=== PATIENT | female | born 1985 | race Caucasian/White ===

== ENCOUNTER → 2016-10-06 | Outpatient (CLI) | payer OTHER ==
[~2016-10-06] MED LIST: NITR-65 PO
--- OUTSIDE RECORDS SUMMARY | 2016-10-06 13:38 | XMS REPORT | Continuity of Care Document ---
Author Author [facility] Address Unknown Phone Unavailable Allergies Active Description Code Type Severity Reaction Onset Reported/Identified Relationship to Patient Clinical Status Yes Sulfa (Sulfonamide Antibiotics) [id number] Drug Allergy Mild N/A 06/17/2013 Yes Sulfa (Sulfonamide Antibiotics) Drug Allergy N/A N/A 08/03/2013 Medications Problems Date Dx Coded Attending Type Code Diagnosis Diagnosed By 06/17/2013 MAGEN HUYNH MD R Ot 599.0 URIN TRACT INFECTION NOS 06/17/2013 MAGEN HUYNH MD Ot 599.70 HEMATURIA, UNSPECIFIED 08/03/2013 [facility] AN ANXIETY UNSPEC 08/03/2013 [facility]4 MO DYSTHYMIC DISORDER 08/03/2013 [facility] L[facility] R 599.0 URINARY TRACT INFECTION 08/03/2013 CLEIA DICKSON MD N 300.00 AN ANXIETY UNSPEC 08/03/2013 CELIA DICKSON MD N 300.4 MO DYSTHYMIC DISORDER 08/03/2013 CELIA DICKSON MD N 599.0 URINARY TRACT INFECTION 08/03/2013 ANUP HUBER, TRUDY A 300.00 AN ANXIETY UNSPEC 08/03/2013 EMELINA HEBERT APRNIDI A 300.4 MO DYSTHYMIC DISORDER 08/03/2013 ANUP HUBER, TRUDY A 599.0 URINARY TRACT INFECTION 08/03/2013 [facility] R 300.00 AN ANXIETY UNSPEC 08/03/2013 [facility] MO DYSTHYMIC DISORDER 08/03/2013 [facility] R 599.0 URINARY TRACT INFECTION 08/30/2013 CELIA DICKSON MD N V04.81 FLU SHOT 08/30/2013 ANUP HUBER TRUDY A V04.81 FLU SHOT 08/30/2013 [facility] R V04.81 FLU SHOT 09/20/2013 EMELINA HEBERT APRNIDI A 626.4 IRREGULAR MENSTRUAL CYCLE 09/20/2013 TRUDY HEBERT APRN V25.01 CONTRACEPTION - ORAL CONTRACEPTION 09/20/2013 [facility] Elia 626.4 IRREGULAR MENSTRUAL CYCLE 09/20/2013 [facility] V25.01 CONTRACEPTION - ORAL CONTRACEPTION 10/08/2015 TRENTONJANNA PIECE DYE WORKER Ot M54.2 10/17/2015 TRENTON JANNA Santana PIECE DYE WORKER Ot M54.2 10/22/2015 EMILYELAESIM JANNA Santana PIECE DYE WORKER Ot M54.2 01/07/2016 SHAWN MARROQUIN DO S Ot R10.84 GENERALIZED ABDOMINAL PAIN 01/09/2016 ROBBY MARROQUIN DOLINE S Ot R10.84 GENERALIZED ABDOMINAL PAIN 01/10/2016 SHAWN MARROQUIN DO S Ot R10.84 GENERALIZED ABDOMINAL PAIN 01/24/2016 ROBBY MARROQUIN DOLINE S Ot R10.84 GENERALIZED ABDOMINAL PAIN 03/13/2016 TRENTONJANNA PIECE DYE WORKER Ot M54.2 CERVICALGIA 03/13/2016 ROBBY MARROQUIN DOLINE S Ot R10.84 GENERALIZED ABDOMINAL PAIN 04/03/2016 TRENTON JANNA Santana PIECE DYE WORKER Ot M54.2 CERVICALGIA 04/03/2016 JENNIFER MARROQUIN DOQUELINE S Ot R10.84 GENERALIZED ABDOMINAL PAIN Procedures Code [place] [address] UA W/ CULTURE IF INDICATED 08/03/2013 85727 PSYCH DIAGNOSTIC EVALUATION 08/04/2013 02135 CULTURE URINE 72617 ROUTINE VENIPUNCTURE 08/30/2013 77749 TEST, URINE (IN-HOUSE) 08/30/2013 07633 TSH 08/30/2013 87586 CBC 08/30/2013 08861 PSYTX PT&/FAMILY 45 MINUTES 10/12/2013 Results Encounters ACCT No. Visit Date/Time Discharge Status Pt. Type Provider Facility Loc./Unit Complaint [id number] 10/12/2013 14:58:00 10/12/2013 23: 59:59 [id number] 09/20/2013 11:11:00 09/20/2013 23: 59:59 CLS Outpatient TRUDY HEBERT APRN [id number] 08/30/2013 08:49:00 08/30/2013 23: 59:59 CLS Outpatient CELIA DICKSON MD [id number] 08/03/2013 14:58:00 08/03/2013 23: 59:[address] [facility]
--- NOTE | 2016-10-06 16:16 | Diagnostic Imaging Report ---
PROCEDURE: US Thyroid. TECHNIQUE: Multiple real-time grayscale images were obtained of the thyroid in various projections. INDICATION: Thyromegaly. FINDINGS: The right lobe is enlarged at 5.0 x 1.7 x 1.4 cm. The left lobe is enlarged at 5.4 x 1.5 x 1.5 cm. There are multiple tiny hypoechoic circumscribed nonaggressive-appearing nodules throughout both lobes. The largest in the right lobe has a long axis of 5 mm. The largest in the left lobe has a long axis of 8 mm. IMPRESSION: Thyromegaly with multiple tiny subcentimeter benign-appearing well-defined hypoechoic nodules suggest multiple adenomas. Followup in one year's time is suggested assuming the absence of any adverse interval clinical change. Dictated by: Dictated on workstation # [id number]
== END ==
LOC: RAD 13:02
PROVIDERS: ATTEND Internal Medicine
DX: E01.0 Iodine-deficiency related diffuse (endemic) goiter (principal)
CPT/HCPCS: 76536

== ENCOUNTER → 2017-01-28 | Outpatient (CLI) | payer OTHER ==
--- NOTE | 2017-01-28 17:38 | Diagnostic Imaging Report ---
PROCEDURE: US Thyroid. TECHNIQUE: Multiple real-time grayscale images were obtained of the thyroid in various projections. INDICATION: Follow-up nodule. COMPARISON: 10/06/2016. FINDINGS: The right thyroid lobe is 4.8 x 1.7 x 1.1 cm. The left lobe is 5.2 x 1.3 x 1.2 cm. In the mid right thyroid lobe, there is a 0.4 x 0.5 x 0.3 cm hypoechoic nodule likely cyst. In the left lobe, there is a hypoechoic nodule measuring 0.8 x 0.6 x 0.7 cm similar to the previous study of 10/06/2016. This lesion is slightly heterogeneous with no definitive calcification. No internal vascularity with color Doppler is identified. IMPRESSION: Thyroid nodule up to 8 mm in size in the left lobe unchanged from the September 2016 exam. Follow-up ultrasound in 9-12 months is recommended to ensure further stability. Dictated by: Dictated on workstation # [id number]
--- NOTE | 2017-01-29 09:22 | Diagnostic Imaging Report ---
EXAM: Renal ultrasound. INDICATION: Right flank pain for 2 months. FINDINGS: The right kidney is 10.7 and the left kidney is 10.9 cm in length. There is no hydronephrosis or focal lesion. The bladder is not well-distended with no obvious abnormality. IMPRESSION: No definite abnormality. Dictated by: Dictated on workstation # [id number]
== END ==
LOC: RAD 11:47
PROVIDERS: ATTEND Nurse Practitioner Family
DX: E04.1 Nontoxic single thyroid nodule (principal); R10.9 Unspecified abdominal pain
CPT/HCPCS: 76536; 76770

== ENCOUNTER → 2017-02-18 | Outpatient (CLI) | payer OTHER ==
--- NOTE | 2017-02-18 15:30 | Diagnostic Imaging Report ---
PROCEDURE: US Gallbladder. TECHNIQUE: Multiple real-time grayscale images were obtained over the right upper quadrant in various projections. INDICATION: Nausea. Abdominal pain. FINDINGS: The area of the pancreas appears unremarkable. The liver is fairly homogeneous with no focal lesion. There is hepatopetal flow in the portal vein. The gallbladder demonstrates no stones, wall thickening or pericholecystic fluid. The CBD is 3 mm in caliber. The right kidney is 10.5 cm in length with no hydronephrosis or focal lesion. Sonographic Gilbert's sign is reportedly negative. No fluid collection in the upper right abdomen is seen. IMPRESSION: Unremarkable exam. Dictated by: Dictated on workstation # [id number]
== END ==
LOC: RAD 15:01
PROVIDERS: ATTEND Nurse Practitioner Family
DX: R11.0 Nausea (principal); R10.84 Generalized abdominal pain
CPT/HCPCS: 76705

== ENCOUNTER → 2017-03-15 | Outpatient (CLI) | payer OTHER ==
[~2017-03-15] MED LIST changes: +CYCL10TA9 PO; +ESCI5TAB PO; +HYDR-3812 PO; +THYR32.57 PO
--- NOTE | 2017-03-15 16:24 | Diagnostic Imaging Report ---
PROCEDURE: CT abdomen and pelvis without contrast. TECHNIQUE: Multiple contiguous axial images were obtained through the abdomen and pelvis without the use of intravenous contrast. INDICATION: Hematuria. COMPARISON: 06/17/2013 FINDINGS: The lung bases appear unremarkable. The liver, the gallbladder, the spleen, the pancreas, and adrenal glands appear unremarkable. There is no hydronephrosis. No urinary tract stone is seen. There is no bowel obstruction. No significant free fluid or fluid collection in the abdomen or pelvis is seen. The appendix is normal. Abdominal aorta is normal in caliber. No paraaortic significantly enlarged lymph nodes are seen. The uterus and adnexa appear grossly unremarkable. IMPRESSION: No urinary tract stones. The osseous structures appear grossly unremarkable. Dictated by: Dictated on workstation # [id number]
== END ==
LOC: RAD 15:50
PROVIDERS: ATTEND Urology
DX: R31.9 Hematuria, unspecified (principal)
CPT/HCPCS: 74176

== ENCOUNTER 2017-04-02 16:29 | Emergency (ER) | payer OTHER ==
[~2017-04-02] VITALS: Ht 167.6 cm; Wt 70.3 kg
[~2017-04-02 16:29] MED LIST changes: -CYCL10TA9 PO; -ESCI5TAB PO; -HYDR-3812 PO; -THYR32.57 PO
--- OUTSIDE RECORDS SUMMARY | 2017-04-02 16:34 | XMS REPORT | Continuity of Care Document ---
Author Author [facility] Address Unknown Phone Unavailable Allergies Active Description Code Type Severity Reaction Onset Reported/Identified Relationship to Patient Clinical Status Yes Sulfa (Sulfonamide Antibiotics) [id number] Drug Allergy Mild N/A 06/17/2013 Yes Sulfa (Sulfonamide Antibiotics) Drug Allergy N/A N/A 08/03/2013 Medications Problems Date Dx Coded Attending Type Code Diagnosis Diagnosed By 06/17/2013 MAGEN HUYNH MD R Ot 599.0 URIN TRACT INFECTION NOS 06/17/2013 MAGEN HUYNH MD Ot 599.70 HEMATURIA, UNSPECIFIED 08/03/[facility]ET[facility] UNSPEC 08/03/2013 [facility] MO DYSTHYMIC DISORDER 08/03/2013 [facility] LIS R 599.0 URINARY TRACT INFECTION 08/03/2013 CELIA DICKSON MD N 300.00 AN ANXIETY UNSPEC 08/03/2013 CELIA DICKSON MD N 300.4 MO DYSTHYMIC DISORDER 08/03/2013 CELIA DICKSNO MD N 599.0 URINARY TRACT INFECTION 08/03/2013 ANUP HUBER, TRUDY A 300.00 AN ANXIETY UNSPEC 08/03/2013 ANUP HUBER TRUDY A 300.4 MO DYSTHYMIC DISORDER 08/03/2013 ANUP HUBER, TRUDY A 599.0 URINARY TRACT INFECTION 08/03/2013 [facility] LSI R 300.00 AN ANXIETY UNSPEC 08/03/2013 [facility] MO DYSTHYMIC DISORDER 08/03/2013 [facility] LIS R 599.0 URINARY TRACT INFECTION 08/30/2013 CELIA DICKSON MD N V04.81 FLU SHOT 08/30/2013 ANUP HUBER TRUDY A V04.81 FLU SHOT 08/30/2013 [facility] LIS R V04.81 FLU SHOT 09/20/2013 TRUDY HEBERT APRN A 626.4 IRREGULAR MENSTRUAL CYCLE 09/20/2013 TRUDY HEBERT APRN V25.01 CONTRACEPTION - ORAL CONTRACEPTION 09/20/2013 [facility], LIS R 626.4 IRREGULAR MENSTRUAL CYCLE 09/20/2013 [facility], LIS Rodrigez V25.01 CONTRACEPTION - ORAL CONTRACEPTION 10/08/2015 JANNA CHOWDHURY FLAT BED OPERATOR Ot M54.2 10/17/2015 EMILYELAEREJANNA FLAT BED OPERATOR Ot M54.2 10/22/2015 EMILYELAEREJANNA FLAT BED OPERATOR Ot M54.2 01/07/2016 FANNYNDER DO, SHAWN S Ot R10.84 GENERALIZED ABDOMINAL PAIN 01/09/2016 ORENDER DO, SHAWN S Ot R10.84 GENERALIZED ABDOMINAL PAIN 01/10/2016 ORENDER DO, SHAWN S Ot R10.84 GENERALIZED ABDOMINAL PAIN 01/24/2016 ORENDER DO, SHAWN S Ot R10.84 GENERALIZED ABDOMINAL PAIN 03/13/2016 JANNA CHOWDHURY FLAT BED OPERATOR Ot M54.2 CERVICALGIA 03/13/2016 OREND DO, SHAWN S Ot R10.84 GENERALIZED ABDOMINAL PAIN 04/03/2016 EMILYJANNA ASCENCIO FLAT BED OPERATOR Ot M54.2 CERVICALGIA 04/03/2016 FANNYND DO, SHAWN S Ot R10.84 GENERALIZED ABDOMINAL PAIN 10/07/2016 ENRRIQUE MALDONADO DO Ot 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 ( ENDEM 11/10/2016 ENRRIQUE MALDONADO DO Ot 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 ( ENDEM 02/10/2017 FREDERICK MALDONADO FLAT BED OPERATOR Ot E04.1 NONTOXIC SINGLE THYROID NODULE 02/10/2017 FREDERICK MALDONADO FLAT BED OPERATOR Ot R10.9 UNSPECIFIED ABDOMINAL PAIN 03/16/2017 SE TORRES, JESSIE Solis Ot R31.9 HEMATURIA, UNSPECIFIED 03/23/2017 FREDERICK MALDONADO FLAT BED OPERATOR Ot R10.84 GENERALIZED ABDOMINAL PAIN 03/23/2017 FREDERICK MALDONADO FLAT BED OPERATOR Ot R11.0 NAUSEA 03/29/2017 JESSIE SAEZ MD Ot R31.9 HEMATURIA, UNSPECIFIED Procedures Code Description [place] [address] UA W/ CULTURE IF INDICATED 08/03/2013 02620 PSYCH DIAGNOSTIC EVALUATION 08/04/2013 06402 CULTURE URINE 90170 ROUTINE VENIPUNCTURE 08/30/2013 80514 TEST, URINE (IN-HOUSE) 08/30/2013 61792 TSH 08/30/2013 78057 CBC 08/30/2013 14700 PSYTX PT&/FAMILY 45 MINUTES 10/12/2013 Results Encounters ACCT No. Visit Date/Time Discharge Status Pt. Type Provider Facility Loc./Unit Complaint [id number] 10/12/2013 14:58:00 10/12/2013 23: 59:59 CLS Outpatient LIS RUVALCABA [id number] 09/20/2013 11:11:00 09/20/2013 23: 59:59 CLS Outpatient TRUDY HEBERT APRN [id number] 08/30/2013 08:49:00 08/30/2013 23: 59:59 CLS Outpatient CELIA DICKSON MD [id number] 08/03/2013 14:58:00 08/03/2013 23: 59:59 CLS Outpatient LIS RUVALCABA [id number] 03/15/2017 15:50:00 2016 23:59:59 CLS Outpatient JESSIE SAEZ MD [facility] RAD HEMATURIA [id number] 02/18/2017 15:01:00 2016 23:59:59 CLS Outpatient FREDERICK MALDONADO FLAT BED OPERATOR [facility] RAD NAUSEA [id number] 01/28/2017 11:47:00 2016 23:59:59 CLS Outpatient FREDERICK MALDONADO FLAT BED OPERATOR [facility] RAD ABD PAIN,FLANK PAIN, ENLARGED THYROID [id number] 10/06/2016 13:02:00 2016 23:59:59 CLS Outpatient ENRRIQUE MALDONADO DO [facility] RAD THYROMEGALY [id number] 01/06/2016 13:48:00 2015 23:59:59 CLS Outpatient SHAWN MARROQUIN DO [facility] RAD FLANK PAIN [id number] 09/24/2015 09:15:00 2015 23:59:59 CLS Outpatient JANNA CHOWDHURY [facility] RAD NECK PAIN [id number] 06/17/2013 06:30:00 2012 08:18:00 DIS Emergency AMINA TORRES, MAGEN Rodrigez [facility] ER BLOOD IN URINE
[2017-04-02] MEDS ORDERED: THYR32.57 PO (16:48)
[2017-04-02] MEDS ORDERED: HYDR-3812 PO (16:48)
[2017-04-02] MEDS ORDERED: ESCI5TAB PO (16:48)
[2017-04-02] MEDS ORDERED: ORPHENADRINE 60 MG/2 ML (NORFLEX) AMP IV STA (17:22)
[2017-04-02] MEDS ORDERED: KETOROLAC 30 MG/ML VIAL IVP STA (17:22)
[2017-04-02] MEDS ORDERED: LACTATED RINGERS 1,000 ML IV ONE (17:22)
[2017-04-02] MEDS ORDERED: ONDANSETRON 4 MG/2 ML (SDV) Z0FRAN IVP ONE (17:30)
--- NOTE | 2017-04-02 17:40 | ED Headache ---
General Chief Complaint: Head/Cervical Problems Stated Complaint: MIGRAINE Nursing Triage Note: to ER with mother with reports of headache since last night. Patient was recently (3 weeks ago) diagnosed with Frank mountain spotted fever, and treated with doxycycline. Patient reports that her PCP advised for her to stop the doxycycline due to her headaches, and has been off of that for 1 week. Patient reports that at onset of headache last night, she took 2 hydrocodone, which subsequently made her nauseated and "felt drunk." Patient reports not attempting other medications since. Denies any other complaints. Nursing Sepsis Screen: No Definite Risk Source: patient, family (MOM) (PATRICIA LEVY DO) History of Present Illness Time seen by provider: 16:50 Initial Comments C/O RIGHT SIDED HEADACHE SINCE 429 YESTERDAY MORNING + NAUSEA, NO VOMITING NO DIZZINESS NO VISION CHANGES NO PARESTHESIAS OR MOTOR DEFICITS NO FEVER HEADACHE IS WORSENED BY STANDING AND BEING IN HEAT AND LIGHT, AND IMPROVED BY LAYING DOWN AND RESTING STATES HEADACHE COMES IN WAVES--COMES AND GOES STATES SHE HAS HAD 2 MONOCULAR MIGRAINES THAT SHE COMPLETELY LOST VISION -ONE IN AUGUST AND ONE IN JANUARY OF THIS YEAR THIS HEADACHE IS SIMILAR, BUT WITHOUT VISION CHANGES PT HAS NOT TAKEN ANYTHING FOR PAIN TODAY TOOK 2 HYDROCODONE YESTERDAY EVENING WITHOUT RELIEF--CAUSED NAUSEA AND MADE HER FEEL DRUNK PT STATES 3 WEEKS AGO, SHE DEVELOPED A RASH--DERMOGRAPHISM--SKIN WOULD WELT UP IF SHE SCRATCHED HER SKIN--SEEN BY KATHIA FRIEDMAN AND WAS PLACED ON PREDNISONE AND RASH WENT AWAY THEN SHE BEGAN TO HAVE NAUSEA, BODY ACHES, HEADACHES, FATIGUE, AND WAS SEEN AGAIN BY KATHIA FRIEDMAN AND LAB WAS DONE AND WAS DX WITH FRANK MOUNTAIN SPOTTED FEVER. WAS PLACED ON PLAQUENIL AND DOXYCYCLINE. HEADACHES CONTINUED, SO AFTER A WEEK OF MEDICATIONS, THEY WERE ALL STOPPED, BECAUSE COMMUNICATION PROFESSOR THOUGHT THAT HEADACHES WERE FROM MEDICATIONS. NO NEW MEDICATION TO TREAT RMSF WAS PRESCRIBED PT HAS BEEN HAVING NECK TENSION X 2 WEEKS AND HAS BEEN SEEN BY CHIROPRACTOR AND MASSAGE THERAPIST WITHOUT SIGNIFICANT RELIEF PT HAS NOT HAD ANY TICK BITES PT HAS NOT HAD FEVER AT ANY TIME PT ALSO HAS HISTORY OF FREQUENT UTI'S AND BEGAN HAVING RIGHT FLANK PAIN WAS SEEN BY DR. MATTHEWS 2 WEEKS AGO AND HAD UA AND CYSTOSCOPY AND WAS TOLD THAT EVERYTHING WAS CLEAR AT THAT TIME 2 DAYS LATER, WAS SEEN BY COMMUNICATION PROFESSOR AND WAS TOLD SHE HAD UTI, AND WAS PRESCRIBED CIPRO FOR 3-5 DAYS, WHICH SHE FINISHED OVER A WEEK AGO--STILL HAVING RIGHT FLANK PAIN PCP: DR. MALDONADO/ COMMUNICATION PROFESSOR NIC FRIEDMAN (PATRICIA LEVY DO) Allergies and Home Medications Allergies Coded Allergies: Sulfa (Sulfonamide Antibiotics) (Verified Allergy, Mild, 06/17/13) Home Medications Cyclobenzaprine HCl 10 Mg Tablet, 10 MG PO HS, #10 Prescribed by: GINGER MCGREGOR on 04/02/170 Escitalopram Oxalate 5 Mg Tablet, 5 MG PO TID, (Reported) Hydrocodone/Acetaminophen 1 Each Tablet, 1 EACH PO Q8H PRN for PAIN, (Reported) Nitrofurantoin Monohyd/M-Cryst 100 Mg Capsule, 1 TAB PO BID, #14 Prescribed by: GINGER MCGREGOR on 04/02/171 Thyroid,Pork 32.5 Mg Tablet, 32.5 MG PO DAILY, (Reported) Constitutional: No chills, No diaphoresis, No dizziness, No fever, No malaise, No weakness Eyes: No Symptoms Reported, Denies Blindness, Denies Blurred Vision, Denies Decreased Acuity Ears, Nose, Mouth, Throat: no symptoms reported Respiratory: no symptoms reported Cardiovascular: no symptoms reported Gastrointestinal: see HPI, No abdominal pain, nausea, No vomiting Genitourinary: see HPI, other (RIGHT FLANK PAIN ) LMP: Feb 13, 2017 (NO CONTROL) Musculoskeletal: see HPI (RIGHT FLANK PAIN ), neck pain Skin: no symptoms reported Psychiatric/Neurological: No Symptoms Reported, Headache, Denies Numbness, Denies Paresthesia, Denies Seizure, Denies Tingling, Denies Weakness (PATRICIA LEVY DO) Past Dmaxbat-Acadhp-Hctkbu Hx Patient Social History Alcohol Use: Denies Use Recreational Drug Use: No Smoking Status: Never a Smoker 2nd Hand Smoke Exposure: No Recent Foreign Travel: No Contact w/Someone Who Travel: No Recent Infectious Disease Expo: No Recent Hopitalizations: No (PATRICIA LEVY DO) Immunizations Up To Date Tetanus Booster (TDap): Less than 5yrs PED Vaccines UTD: Yes (PATRICIA LEVY DO) Seasonal Allergies Seasonal Allergies: Yes (PATRICIA LEVY DO) Surgeries HX Surgeries: Yes Surgeries: Adenoidectomy, Tonsillectomy (DELROY,PATRICIA K DO) Respiratory Hx Respiratory Disorders: No (DELROY,PATRICIA K DO) Cardiovascular Hx Cardiac Disorders: No (DELROY,PATRICIA K DO) Neurological Hx Neurological Disorders: Yes Neurological Disorders: Headaches /Migraines (DELROY,PATRICIA K DO) Reproductive System : No Hx Reproductive Disorders: No Sexually Transmitted Disease: No HIV/AIDS: No Female Reproductive Disorders: Denies (DELROY,PATRICIA K DO) Genitourinary Hx Genitourinary Disorders: Yes Genitourinary Disorders: UTI-Chronic (DELROY,PATRICIA K DO) Gastrointestinal Hx Gastrointestinal Disorders: No (DELROY,PATRICIA K DO) Musculoskeletal Hx Musculoskeletal Disorders: No (DELROY,PATRICIA K DO) Endocrine Hx Endocrine Disorders: Yes (THYROID NODULES/CYSTS) Endocrine Disorders: Hypothyroidsim (DELROY,PATRICIA K DO) HEENT HX ENT Disorders: No (DELROY,PATRICIA K DO) Cancer Hx Cancer: No (DELROY,PATRICIA K DO) Psychosocial Hx Psychiatric Problems: Yes Behavioral Health Disorders: Depression (DELROY,PATRICIA K DO) Integumentary HX Skin/Integumentary Disorder: No (DELROY,PATRICIA K DO) Blood Transfusions Hx Blood Disorders: No (DELROY,PATRICIA K DO) Physical Exam Vital Signs Vital Sign - Last 12Hours 04/02/17 16:38 Temp 98.0 Pulse 76 Resp 16 B/P (MAP) 137/85 Pulse Ox 100 O2 Delivery Room Air (GINGER NIXON MD) Vital Signs Capillary Refill : Less Than 3 Seconds (DELROY,PATRICIA K DO) General Appearance: WD/WN, no apparent distress, other (DOES NOT APPEAR ILL) HEENT: PERRL/EOMI, normal ENT inspection, TMs normal, pharynx normal Neck: full range of motion, supple, other (MUSCLE SPASMS AND TENDERNESS TO RIGHT LATERAL PARAVERTEBRAL MUSCLES) Cardiovascular: regular rate, rhythm, no murmur Respiratory: normal breath sounds, no respiratory distress, no accessory muscle use Gastrointestinal: normal bowel sounds, non tender, soft, no organomegaly, no pulsatile mass Back: normal inspection, CVA tenderness (R) Extremities: normal range of motion, non-tender, normal inspection, no pedal edema, no calf tenderness Psychiatric: alert, oriented x 3 Crainal Nerves: normal hearing, normal speech, PERRL Coordination/Gait: normal gait Motor/Sensory: no motor deficit, no sensory deficit, no pronator drift Reflexes: 2+ Bicep (R), 2+ Bicep (L), 2+ Knee (R), 2+ Knee (L) Skin: normal color, warm/dry, No rash (DELROY,PATRICIA K DO) Progress/Results/Core Measures Results/Orders Lab Results Laboratory Tests Test 04/02/17 17:34 04/02/17 17:37 Range/Units White Blood Count 9.5 4.3-11.0 10^3/uL Red Blood Count 4.22 L 4.35-5.85 10^6/uL Hemoglobin 12.7 11.5-16.0 G/DL Hematocrit 36 35-52 % Mean Corpuscular Volume 85 80-99 FL Mean Corpuscular Hemoglobin 30 25-34 PG Mean Corpuscular Hemoglobin Concent 35 32-36 G/DL Red Cell Distribution Width 12.2 10.0-14.5 % Platelet Count 255 130-400 10^3/uL Mean Platelet Volume 8.9 7.4-10.4 FL Neutrophils (%) (Auto) 57 42-75 % Lymphocytes (%) (Auto) 35 12-44 % Monocytes (%) (Auto) 6 0-12 % Eosinophils (%) (Auto) 2 0-10 % Basophils (%) (Auto) 1 0-10 % Neutrophils # (Auto) 5.4 1.8-7.8 X 10^3 Lymphocytes # (Auto) 3.3 1.0-4.0 X 10^3 Monocytes # (Auto) 0.6 0.0-1.0 X 10^3 Eosinophils # (Auto) 0.2 0.0-0.3 10^3/uL Basophils # (Auto) 0.1 0.0-0.1 10^3/uL Erythrocyte Sedimentation Rate 4 0-20 MM/HR Urine Color YELLOW Urine Clarity CLEAR Urine pH 6.5 5-9 Urine Specific [place] 1.010 L 1.016-1.022 Urine Protein 1+ H NEGATIVE Urine Glucose (UA) NEGATIVE NEGATIVE Urine Ketones NEGATIVE NEGATIVE Urine Nitrite NEGATIVE NEGATIVE Urine Bilirubin NEGATIVE NEGATIVE Urine Urobilinogen NORMAL NORMAL MG/DL Urine Leukocyte Esterase 3+ H NEGATIVE Urine RBC (Auto) 1+ H NEGATIVE Urine RBC 2-5 H /HPF Urine WBC 50-100 H /HPF Urine Squamous Epithelial Cells 25-50 H /HPF Urine Crystals NONE /LPF Urine Bacteria FEW H /HPF Urine Casts NONE /LPF Urine Mucus NEGATIVE /LPF Urine Culture Indicated YES Sodium Level 139 135-145 MMOL/L Potassium Level 3.8 3.6-5.0 MMOL/L Chloride Level 103 98-107 MMOL/L Carbon Dioxide Level 25 21-32 MMOL/L Anion Gap 11 5-14 MMOL/L Blood Urea Nitrogen 14 7-18 MG/DL Creatinine 0.71 0.60-1.30 MG/DL Estimat Glomerular Filtration Rate > 60 BUN/Creatinine Ratio 20 Glucose Level 86 70-105 MG/DL Calcium Level 9.5 8.5-10.1 MG/DL Total Bilirubin 0.8 0.1-1.0 MG/DL Aspartate Amino Transf (AST/SGOT) 21 5-34 U/L Alanine Aminotransferase (ALT/SGPT) 21 0-55 U/L Alkaline Phosphatase 52 40-136 U/L C-Reactive Protein High Sensitivity 0.19 0.00-0.50 MG/DL Total Protein 7.5 6.4-8.2 GM/DL Albumin 4.4 3.2-4.5 GM/DL Magnesium Level 2.2 1.8-2.4 MG/DL TSH Mcdowell Testing 1.33 0.35-4.94 UIU/ML (GINGER NIXON MD) My Orders Orders - GINGER NIXON MD Ceftriaxone Injection (Rocephin Injectio (04/02/17 18:15) (GINGER NIXON MD) Medications Given in ED Current Medications Medications Dose Ordered Sig/Jad Route Start Time Stop Time Status Last Admin Dose Admin Ceftriaxone Sodium 1000 mg/ Sodium Chloride 50 ml @ 100 mls/hr ONCE ONCE IV 04/02/17 18:15 04/02/17 18:44 DC 04/02/17 18:25 100 MLS/HR Lactated Ringer's 1,000 ml @ 0 mls/hr Q0M ONCE IV 04/02/17 17:22 04/02/17 17:26 DC 04/02/17 17:35 0 MLS/HR Ondansetron HCl 4 mg ONCE ONCE IVP 04/02/17 17:30 04/02/17 17:31 DC 04/02/17 17:37 4 MG (GINGER NIXON MD) Vital Signs/I&O Vital Sign - Last 12Hours 04/02/17 04/02/17 16:38 17:37 Temp 98.0 98.0 Pulse 76 Resp 16 B/P (MAP) 137/85 Pulse Ox 100 O2 Delivery Room Air Intake and Output 04/03/17 00:00 Intake Total 1000 ml Balance 1000 ml (GINGER NIXON MD) Blood Pressure Mean: 102 Progress Note : Progress Note 1800--CARE TURNED OVER TO DR. NIXON, ALL STUDIES PENDING (PATRICIA LEVY DO) Progress Note #1: Time: 18:30 Progress Note Care of this patient was assumed from Dr. Levy. Labs have been reviewed and are relatively unremarkable with the exception of UA which demonstrates a significant urinary tract infection. Rocephin was ordered for initial treatment. CT of the head was viewed and report reviewed. No acute abnormalities identified. Progress Note #2: Time: 18:56 Progress Note Patient appears to be experiencing recurrent headaches and urinary tract infections. She received a gram of Rocephin in the emergency room. She reports Macrobid works well for outpatient treatment of her urinary tract infections, so this will be prescribed today. She was instructed to follow-up on her repeat take panel and her urine culture. There was some concern that the right sided flank pain may be related to urinary tract stone. However, patient had a CT scan performed recently for a stone search during evaluation of this pain. None were found. Symptoms improved significantly with treatments ordered by Dr. Levy. (GINGER NIXON MD) Diagnostic Imaging Diagonstic Imaging: CT Plain Films/CT/US/NM/MRI: head Comments CT head viewed by me and report reviewed. See report below: NAME: SIERRA [facility]ERNÁNDEZ [facility] REC#: [id number] PT STATUS: REG ER : 1985 PHYSICIAN: PATRICIA LEVY DO ADMIT DATE: 04/02/17/ER Draft Date of Exam:04/02/17 CT HEAD WO INDICATION: Migraines since history. Nausea. EXAMINATION: CT brain without contrast, 04/02/2017. COMPARISON: None. FINDINGS: There is no hemorrhage or infarct. No mass, mass effect or midline shift is noted. There is no hydrocephalus. The osseous structures are intact. No depressed calvarial fractures are seen. The visualized paranasal sinuses and mastoid air cells are clear. IMPRESSION: No acute intracranial process. Dictated on workstation # [id number] Dict: 04/02/17 1807 Trans: 04/02/17 1827 [facility] [id number] Interpreted by: RHONAD MEDINA MD (GINGER NIXON MD) Departure Impression Impression: Primary Impression: Urinary tract infectious disease Additional Impression: Recurrent headache Disposition: 01 HOME, SELF-CARE Condition: Improved Departure-Patient Inst. Decision time for Depature: 18:45 (GINGER NIXON MD) Referrals: ENRRIQUE MALDONADO DO (PCP) Primary Care Physician FREDERICK MALDONADO DNP (Family) Primary Care Physician Patient Instructions: Headache, Adult (DC), Urinary Tract Infection, Adult (DC) Add. Discharge Instructions: Follow-up with your primary care provider early next week. Follow-up with Dr. Matthews may be appropriate as well. You need to review your urine culture and tick studies with your doctor. Rink plenty of clear liquids. For headache, try ibuprofen up to 600 mg every 6 hours as needed. Add Tylenol (acetaminophen ) up to 1000 mg every 6 hours. Your headache may be tension related. Monitor your posture and activities that cause tension in the neck and shoulders. Gentle heat to affected areas may be helpful. Discuss with your primary care provider. Chiropractics, massage or physical therapy may be appropriate as your primary care provider sees fit. Return to care if symptoms worsen. All discharge instructions reviewed with patient and/or family. Voiced understanding. Scripts Cyclobenzaprine HCl (Cyclobenzaprine HCl) 10 Mg Tablet 10 MG PO HS, #10 TAB Prov: GINGER NIXON MD 04/02/17 Nitrofurantoin Monohyd/M-Cryst (Macrobid 100 mg Capsule) 100 Mg Capsule 1 TAB PO BID, #14 CAP Prov: GINGER NIXON MD 04/02/17 Copy Copies To 1: ENRRIQUE MALDONADO LISA K DO Apr 02, 2017 17:40 GINGER NIXON MD Apr 02, 2017 18:36
[2017-04-02 17:49] LABS: BASOPHILS # (AUTO) 0.1 10^3/uL (0.0-0.1); BASOPHILS % (AUTO) 1 % (0-10); EOSINOPHILS # (AUTO) 0.2 10^3/uL (0.0-0.3); EOSINOPHILS % (AUTO) 2 % (0-10); LYMPHOCYTES # (AUTO) 3.3 X 10^3 (1.0-4.0); LYMPHOCYTES % (AUTO) 35 % (12-44); MEAN CORPUSCULAR HEMOGLOBIN 30 PG (25-34); MEAN CORPUSCULAR HGB CONC 35 G/DL (32-36); MEAN CORPUSCULAR VOLUME 85 FL (80-99); MEAN PLATELET VOLUME 8.9 FL (7.4-10.4); MONOCYTES # (AUTO) 0.6 X 10^3 (0.0-1.0); MONOCYTES % (AUTO) 6 % (0-12); NEUTROPHILS # (AUTO) 5.4 X 10^3 (1.8-7.8); NEUTROPHILS % (AUTO) 57 % (42-75); PLATELET COUNT 255 10^3/uL (130-400); RED BLOOD COUNT 4.22 10^6/uL (4.35-5.85); RED CELL DISTRIBUTION WIDTH 12.2 % (10.0-14.5); WHITE BLOOD COUNT 9.5 10^3/uL (4.3-11.0)
[2017-04-02 17:50] LABS: BILIRUBIN,URINE NEGATIVE (NEGATIVE); KETONES,URINE NEGATIVE (NEGATIVE); LEUKOCYTE ESTERASE ,URINE 3+ (NEGATIVE); NITRITE,URINE NEGATIVE (NEGATIVE); PH,URINE 6.5 (5-9); PROTEIN,URINE 1+ (NEGATIVE); UROBILINOGEN,URINE NORMAL (NORMAL)
[2017-04-02 18:01] LABS: SQUAMOUS EPITHELIAL CELL,UR 25-50 /HPF; WBC,URINE 50-100 /HPF
[2017-04-02 18:08] LABS: ALANINE AMINOTRANSFERASE 21 U/L (0-55); ALBUMIN 4.4 GM/DL (3.2-4.5); ANION GAP 11 MMOL/L (5-14); ASPARTATE AMINO TRANSFERASE 21 U/L (5-34); BILIRUBIN,TOTAL 0.8 MG/DL (0.1-1.0); BLOOD UREA NITROGEN 14 MG/DL (7-18); BUN/CREATININE RATIO 20; CALCIUM 9.5 MG/DL (8.5-10.1); CARBON DIOXIDE 25 MMOL/L (21-32); CHLORIDE 103 MMOL/L (98-107); CREATININE SERUM 0.71 MG/DL (0.60-1.30); GFR ESTIMATED > 60; GLUCOSE 86 MG/DL (70-105); POTASSIUM 3.8 MMOL/L (3.6-5.0); SODIUM 139 MMOL/L (135-145); TOTAL PROTEIN 7.5 GM/DL (6.4-8.2); hs C REACTIVE PROTEIN 0.19 MG/DL (0.00-0.50)
[2017-04-02 18:15] LABS: MAGNESIUM 2.2 MG/DL (1.8-2.4)
[2017-04-02] MEDS ORDERED: cefTRIAXone INJECTION 1,000 MG in NS (IVPB) 50 ML IV ONE (18:15)
[2017-04-02 18:25] LABS: ERYTHROCYTE SEDIMENTATION RATE 4 MM/HR (0-20)
--- NOTE | 2017-04-02 18:27 | Diagnostic Imaging Report ---
INDICATION: Migraines since history. Nausea. EXAMINATION: CT brain without contrast, 04/02/2017. COMPARISON: None. FINDINGS: There is no hemorrhage or infarct. No mass, mass effect or midline shift is noted. There is no hydrocephalus. The osseous structures are intact. No depressed calvarial fractures are seen. The visualized paranasal sinuses and mastoid air cells are clear. IMPRESSION: No acute intracranial process. Dictated by: Dictated on workstation # [id number]
[2017-04-02] MEDS ORDERED: NITR-65 PO (19:01)
[2017-04-02] MEDS ORDERED: CYCL10TA9 PO (19:10)
[2017-04-02 19:12] VITALS: BP 132/81
[2017-04-05 13:48] LABS: EHRLICHIA CHAFFEENSIS G ABY <1:16 (<1:16)
[2017-04-05 15:19] LABS: LYME AB G M 0.04 Index (0.00-0.89)
[2017-04-05 15:39] LABS: IGG ROCKY MOUNTAIN SPOTTED FEV <1:16 (<1:16); IGM ROCKY MOUNTAIN SPOTTED FEV <1:10 (<1:10); LYME AB INTERP Negative (Negative)
[2017-04-06 10:54] LABS: TULAREMIA ANTIBODY <1:20
== END 2017-04-02 19:12 | disposition home or self-care (01) ==
LOC: EDUNIT# 16:29 → ER 16:30
DX: R51 Headache (principal); N39.0 Urinary tract infection, site not specified; E03.9 Hypothyroidism, unspecified; F32.9 Major depressive disorder, single episode, unspecified; Z87.440 Personal history of urinary (tract) infections; Z90.89 Acquired absence of other organs
CPT/HCPCS: 36415; 70450; 80053; 81000; 83735; 84443; 84703; 85025; 85652; 86141; 86618; 86666; 86668; 86757; 87088; 96361; 96365; 96375

== ENCOUNTER 2018-07-28 15:50 | Outpatient (RCR) | payer OTHER ==
[2018-06-02 13:30] VITALS: BP 114/62
[2018-06-02] MEDS: DOXYCYCLINE IV SCH (14:08)
[2018-06-02] MEDS: NS IV SCH (14:08)
[2018-06-02 16:38] VITALS: BP 0/0
[2018-06-03] MEDS: DOXYCYCLINE IV SCH (16:11)
[2018-06-03] MEDS: NS IV SCH (16:11)
[2018-06-03 18:37] VITALS: BP 121/69
[2018-06-04] MEDS: DOXYCYCLINE IV SCH (15:32)
[2018-06-04] MEDS: NS IV SCH (15:32)
[2018-06-04 17:48] VITALS: BP 118/64
[2018-06-05] MEDS: DOXYCYCLINE IV SCH (16:31)
[2018-06-05] MEDS: NS IV SCH (16:31)
[2018-06-05 16:39] VITALS: BP 121/61
[2018-06-06] MEDS: DOXYCYCLINE IV SCH (15:39)
[2018-06-06] MEDS: NS IV SCH (15:39)
[2018-06-06 18:43] VITALS: BP 131/69
[2018-06-07 12:30] VITALS: BP 123/82
--- NOTE | 2018-06-07 15:49 | Diagnostic Imaging Report ---
CHEST 1 VIEW, AP/PA ONLY Indication: PICC placement. Comparison: None available. Findings: Left PICC has tip terminating in the upper SVC. No focal airspace disease in the visualized lungs. Please note that the posterior lower lobes are poorly evaluated by portable radiography. No pleural effusion or pneumothorax. Normal cardiomediastinal silhouette. Impression: Left PICC has tip in the upper SVC. Dictated by: Dictated on workstation # [id number]
[2018-06-07] MEDS: NS IV SCH (15:50)
[2018-06-07] MEDS: DOXYCYCLINE IV SCH (15:50)
[2018-06-07 18:05] VITALS: BP 123/82
[2018-06-08 15:05] VITALS: BP 121/77
[2018-06-08] MEDS: DOXYCYCLINE IV SCH (15:25)
[2018-06-08] MEDS: NS IV SCH (15:25)
[2018-06-09] MEDS: NS IV SCH (16:08)
[2018-06-09] MEDS: DOXYCYCLINE IV SCH (16:08)
[2018-06-09 18:25] VITALS: BP 116/78
[2018-06-10] MEDS: NS IV SCH (15:54)
[2018-06-10] MEDS: DOXYCYCLINE IV SCH (15:54)
[2018-06-10 18:14] VITALS: BP 116/65
[2018-06-11 16:00] VITALS: BP 118/59
[2018-06-11] MEDS: NS IV SCH (16:14)
[2018-06-11] MEDS: DOXYCYCLINE IV SCH (16:14)
[2018-06-12 13:40] VITALS: BP 120/56
[2018-06-12] MEDS: NS IV SCH ×2 (13:54→13:56)
[2018-06-12] MEDS: DOXYCYCLINE IV SCH ×2 (13:54→13:56)
[2018-06-13] MEDS: DOXYCYCLINE IV SCH (16:05)
[2018-06-13] MEDS: NS IV SCH (16:05)
[2018-06-13 18:30] VITALS: BP 116/65
[2018-06-14] MEDS: NS IV SCH (15:45)
[2018-06-14] MEDS: DOXYCYCLINE IV SCH (15:45)
[2018-06-14] MEDS: CATHETER FLUSH 10 ML SYR IV PRN ×2 (16:10→18:10)
[2018-06-14 18:47] VITALS: BP 117/74
[2018-06-15] MEDS: NS IV SCH (15:27)
[2018-06-15] MEDS: DOXYCYCLINE IV SCH (15:27)
[2018-06-15 15:28] VITALS: BP 130/81
[2018-06-15] MEDS: CATHETER FLUSH 10 ML SYR IV PRN (15:28)
[2018-06-17] MEDS: NS IV SCH (16:03)
[2018-06-17] MEDS: DOXYCYCLINE IV SCH (16:03)
[2018-06-17] MEDS: CATHETER FLUSH 10 ML SYR IV PRN (16:04)
[2018-06-17 18:22] VITALS: BP 139/63
[2018-06-18 15:26] VITALS: BP 123/67
[2018-06-18] MEDS: CATHETER FLUSH 10 ML SYR IV PRN (15:26)
[2018-06-18] MEDS: DOXYCYCLINE IV SCH (15:26)
[2018-06-18] MEDS: NS IV SCH (15:26)
[2018-06-19 15:10] VITALS: BP 129/66
[2018-06-19] MEDS: DOXYCYCLINE IV SCH (15:19)
[2018-06-19] MEDS: NS IV SCH (15:19)
[2018-06-19 17:30] VITALS: BP 129/66
[2018-06-20] MEDS: DOXYCYCLINE IV SCH (15:35)
[2018-06-20] MEDS: NS IV SCH (15:35)
[2018-06-20] MEDS: CATHETER FLUSH 10 ML SYR IV PRN (15:36)
[2018-06-20 15:37] VITALS: BP_SYST 122; BP_SYST 130; BP_DIAS 78; BP_DIAS 81
[2018-06-22 15:30] VITALS: BP 122/78
[2018-06-27 16:11] VITALS: BP 119/75
[2018-07-04 16:00] VITALS: BP 123/65
[2018-07-11 16:15] VITALS: BP 122/70
[2018-07-18 16:15] VITALS: BP 122/74
[2018-07-25] MEDS: CATHETER FLUSH 10 ML SYR IV PRN (15:55)
[2018-07-25 16:08] VITALS: BP 118/78
[~2018-07-28] VITALS: Ht 167.6 cm; Wt 70.3 kg
[~2018-07-28 15:50] MED LIST changes: +ACHD5005 PO; +CYCL10TA9 PO; +ESCI5TAB PO; +ONDANSETRON 4 MG/2 ML (SDV) Z0FRAN IV PRN; +THYR32.57 PO
[2018-07-28] MEDS: CATHETER FLUSH 10 ML SYR IV PRN (16:40)
[2018-07-28 16:55] VITALS: BP 119/77
== END 2018-07-28 16:55 | disposition home or self-care (01) ==
LOC: 4TH RCR 15:50
PROVIDERS: ATTEND Nurse Practitioner Family
DX: A77.0 Spotted fever due to Rickettsia rickettsii (principal); Z45.2 Encounter for adjustment and management of vascular access device
CPT/HCPCS: 36569; 71045; 76937; 96365; 96366; 96374; 99211

== ENCOUNTER 2019-01-10 05:41 | Outpatient (CLI) | payer OTHER ==
[~2019-01-10] VITALS: Ht 167.6 cm; Wt 77.1 kg
[~2019-01-10 05:41] MED LIST changes: -ONDANSETRON 4 MG/2 ML (SDV) Z0FRAN IV PRN
== END 2019-01-10 12:48 | disposition home or self-care (01) ==
LOC: PREOP 05:41
PROVIDERS: ATTEND Surgery
DX: Z01.818 Encounter for other preprocedural examination (principal)

== ENCOUNTER 2019-01-18 06:02 | Day surgery (SDC) | payer OTHER ==
[2019-01-18] VITALS (11 sets, daily range): BP systolic 83–118; BP diastolic 45–78
[~2019-01-18] VITALS: Ht 167.6 cm; Wt 79.8 kg
[2019-01-18] MEDS ORDERED: ceFAZolin 2 GM/50 ML NS 50 ML IV ONE (06:30)
[2019-01-18] MEDS ORDERED: ceFAZolin 2 GM/50 ML NS 50 ML ONE (06:38)
[2019-01-18] MEDS: LACTATED RINGERS 1,000 ML IV PRN ×2 (06:40→09:15)
[2019-01-18] MEDS ORDERED: FAMOTIDINE 20MG/2ML IV (PEPCID) ONE (06:52)
[2019-01-18] MEDS ORDERED: ONDANSETRON 4 MG/2 ML (SDV) Z0FRAN ONE ×2 (06:52→07:01)
[2019-01-18] MEDS ORDERED: SCOPOLAMINE 1.5 MG (TRANSDERM-SCOP) PATCH ONE (06:52)
[2019-01-18] MEDS ORDERED: CATHETER FLUSH 10 ML SYR IV PRN (07:00)
[2019-01-18] MEDS ORDERED: FAMOTIDINE 20MG/2ML IV (PEPCID) IV ONE (07:00)
[2019-01-18] MEDS ORDERED: ONDANSETRON 4 MG/2 ML (SDV) Z0FRAN IV ONE (07:00)
[2019-01-18] MEDS ORDERED: LIDOCAINE PF 2% 5 ML (XYLOCAINE) VIAL ONE (07:01)
[2019-01-18] MEDS ORDERED: ROCURONIUM 10 MG/ML 5 ML SYRINGE IV ONE (07:01)
[2019-01-18] MEDS ORDERED: DEXAMETHASONE 10 MG/ML (DECADRON) 1 ML VIAL ONE (07:01)
[2019-01-18] MEDS ORDERED: proPOfol 200 MG/20 ML (DIPRIVAN) VIAL IV ONE (07:01)
[2019-01-18] MEDS ORDERED: fentaNYL INJECTION 100 MCG/2 ML AMP ONE (07:02)
[2019-01-18] MEDS ORDERED: MIDAZOLAM 2 MG/2 ML (VERSED) VIAL ONE (07:02)
[2019-01-18] MEDS ORDERED: LIDOCAINE 1% INJ 20 ML 20 ML VIAL ONE (07:03)
[2019-01-18] MEDS ORDERED: IOPAMIDOL 61% 30 ML (ISOVUE 300) VIAL IV ONE (07:03)
[2019-01-18] MEDS ORDERED: BUP/EPI 0.5% 1:200,000 (SENSORCAINE) 30 ML VIAL ONE (07:03)
[2019-01-18] MEDS ORDERED: SCOPOLAMINE 1.5 MG (TRANSDERM-SCOP) PATCH TOP ONE (07:15)
[2019-01-18] MEDS ORDERED: SEVOFLURANE (ULTANE) 15 ML INHAL SOLN ONE (07:43)
--- NOTE | 2019-01-18 08:45 | Progress Note-Pre Operative ---
Pre-Operative Progress Note H&P Reviewed The H&P was reviewed, patient examined and no changes noted. Time Seen by Provider: 08:32 Date H&P Reviewed: Jan 18, 2019 Time H&P Reviewed: 08:33 Pre-Operative Diagnosis: Biliary Dyskinesia MARCELLO RICHMOND DO Jan 18, 2019 08:45
--- NOTE | 2019-01-18 09:44 | Progress Note-Post Operative ---
Post-Operative Progess Note Surgeon (s)/Global Implementation Manager (s) Surgeon MARCELLO RICHMOND DO Global Implementation Manager: Kristal Pre-Operative Diagnosis Biliary Dyskinesia Post-Operative Diagnosis same Procedure & Operative Findings Date of Procedure 01/18/19 Procedure Performed/Findings Lap neela with IOC Anesthesia Type GET Estimated Blood Loss Estimated blood loss (mL): scant Specimens/Packing Specimens Removed GB and contents MARCELLO RICHMOND DO Jan 18, 2019 09:44
[2019-01-18] MEDS ORDERED: ACHD5005 PO (09:45)
--- NOTE | 2019-01-18 09:47 | Discharge Inst-Surgical ---
Discharge Inst-Surgical Depart Medication/Instructions New, Converted or Re-Newed RX: RX Given to Pt/Family Patient Instructions Follow up Appt: Make appointment for 1 week. [phone] Instructions: No lifting greater than 20 pounds. No strenuous activity. May shower in 24 hours, no tub bath or soaking. Use incentive spirometer at home as directed. No Smoking Skin/Wound Care: May remove bandages in am. You need to leave the Dermabond on incision it will fall off on it's own. Symptoms to Report: Appetite Changes, Extremity Discoloration, Numbness/Tingling, Swelling Increased, Bleeding Excessive, Eyesight Changes, Pain Increased, Urine Color Change, Constipation(Persistent), Fever over 101 degree F, Pain/Pressure in chest, Urinating Difficulty, Cough Up/Vomit Blood, Heart Beat Irreg/Pounding, Pain/Pressure in jaw, Cramps in feet or legs, Lightheadedness, Pain/Pressure in shoulder, Diarrhea(Persistent), Memory Changes Suddenly, Questions/Concerns, Weight gain consecutive days, Dizziness/Fainting, Nausea/Vomiting, Shortness of Breath, Weight gain over 2 pounds If questions or concerns contact your physician Or seek help at emergency department. Activity Activity as Tolerated: Yes Activity Instructions: Avoid Stress to Incision Driving Instructions: No Driving/Refer to Diet Discharge Diet: Avoid Fatty Foods, Low Fat/Low Cholesterol Diet After 24 Hours: Clear Liquid if Nauseous If Any Problems/Questions/Issu: Contact Your Physician, Go to Emergency Room Skin/Wound Care Infection Signs and Symptoms: Increased Redness, Foul Odor of Wound, Increased Drainage, Skin Itchy or Has a Rash, Increased Swelling, Temperature Above 101 F Wound Care Comment: Heating pad apply to neck or shoulder for pain tonight Bathing Instructions: Shower Stitches/[place]/Dermabond Dis: Dermabond Ice Pack: Ice On and Off Site (as needed for at incisions) MARCELLO RICHMOND DO Jan 18, 2019 09:47
[2019-01-18] MEDS ORDERED: NEOSTIGMINE 1 MG/ML 5 ML SYRINGE ONE (10:02)
[2019-01-18] MEDS ORDERED: GLYCOPYRROLATE 0.2 MG/ML (ROBINUL) 2 ML VIAL ONE (10:03)
[2019-01-18] MEDS ORDERED: morphine INJ 10 MG/ML 1ML (SYR OR VIAL) ONE (10:08)
[2019-01-18] MEDS ORDERED: morphine INJ 10 MG/ML 1ML (SYR OR VIAL) IVP ONE (10:15)
[2019-01-18] MEDS ORDERED: ONDANSETRON 4 MG/2 ML (SDV) Z0FRAN IVP PRN (10:15)
[2019-01-18] MEDS ORDERED: HYDROcodone/APAP 5 MG/325 MG (LORTAB) TAB ONE (10:47)
[2019-01-18] MEDS ORDERED: HYDROcodone/APAP 5 MG/325 MG (LORTAB) TAB PO ONE (11:00)
--- NOTE | 2019-01-18 14:20 | OPERATIVE REPORT ---
DATE OF SERVICE: PREOPERATIVE DIAGNOSIS: Biliary dyskinesia. POSTOPERATIVE DIAGNOSIS: Biliary dyskinesia. PROCEDURE: Laparoscopic cholecystectomy, intraoperative cholangiogram. SURGEON: Grupo Levin DO SHEET METAL DUCT INSTALLER: Dr. Giraldo. ANESTHESIA: General endotracheal tube. SPECIMEN: Gallbladder and contents. BLOOD LOSS: Scant. FLUIDS: Per anesthesia. POSTOPERATIVE CONDITION: Stable. INDICATION FOR PROCEDURE: The patient is a 33-year-old female who had some right upper quadrant pain and cholecystitis symptoms. HIDA scan showed 90% ejection fraction, needed to get her gallbladder removed. FINDINGS: The patient had gallbladder removed. She had adhesions of the gallbladder. This was indicative of previous gallbladder attacks. PROCEDURE NOTE: After informed consent was obtained, the patient was brought to the operating room, placed on table in supine position. She was sterilely prepped and draped in normal fashion. Local lidocaine was used to infiltrate the skin above the umbilicus. I made the incision with #11 blade, carried down to the skin into subcutaneous tissue, deepened down to subcutaneous tissue with Bovie electrocautery down to the fascia. Fascia then incised with Bovie electrocautery, bluntly entered the abdomen, swept a finger around, placed 0 Vicryl [id number] suture and placed 11 mm trocar port under direct visualization, created pneumoperitoneum and then placed 3 more ports in normal fashion using local lidocaine, 11 blade for stab incision and VersaStep system, all done under direct visualization, one subxiphoid and two in the right upper quadrant. The patient was then placed in reverse Trendelenburg, rotated left, able to visualize the gallbladder. There were adhesions to it, this is usually indicative of previous gallbladder attack. Able to grasp the gallbladder at the fundus and taken in superior direction, then grasped down to Alecia's pouch and after taking down adhesions with blunt dissection as well as Bovie electrocautery, then able to grasp down to Alecia's pouch, pulled in inferolateral direction, start dissecting out cystic duct and cystic artery, able to get around the cystic duct and the cystic artery and placed 1 clip distally on the cystic duct and one distally and two proximally on the cystic artery, then cut the cystic duct mcfp through Metzenbaum scissors. Placed cholangiogram catheter and shot a cholangiogram. Good spillage of dye down the common bile duct into the small intestine as well as up into common hepatic and right and left hepatics. Removed the cholangiogram catheter and then placed 2 clips proximally on the cystic duct and cut the cystic duct and the cystic artery with Metzenbaum scissors. Removed the gallbladder from bed of liver with L-hook cautery and once the gallbladder was fully removed, placed a bag in the abdomen, placed the gallbladder in the bag, then removed this through the supraumbilical incision. Placed the port back in the abdomen, copiously irrigated with normal saline, suctioned this out. There was no bleeding from the bed of liver, looked around, no pathology. The patient was placed supine, removed all ports under direct visualization, allowed pneumoperitoneum to escape as well as suctioned out and then closed the supraumbilical incision, closing the fascia with 0 Vicryl suture previously placed. Copiously irrigated all incisions with normal saline, closing the 3 small 5 mm incisions with a single interrupted 4-0 undyed Monocryl stitch, closed the supraumbilical incision with 3 interrupted 4-0 undyed Monocryl subcuticular stitches. Area was cleaned and dried and Dermabond and then Band-Aids placed. The patient tolerated procedure. She is still in the operating room in stable condition while I am dictating this. Job ID: [id number] DocumentID: [id number] Dictated Date: 01/18/2019 09:44:23 Land Resource Specialist Date: 01/18/2019 14:19:40 Dictated By: GRUPO LEVIN DO
--- NOTE | 2019-01-18 16:45 | Diagnostic Imaging Report ---
INDICATION: Cholecystectomy. TECHNIQUE: The operative cholangiogram was performed in the routine fashion with injection via the cystic duct stump in Surgery. FINDINGS: Contrast fills the biliary tree. There are no filling defects in the common duct. The common duct is nondilated. There is flow of contrast from the common duct to the duodenum without obstruction. IMPRESSION: Unremarkable operative cholangiogram. 16 seconds of fluoroscopy time was used in Surgery. Dictated by: Dictated on workstation # [id number]
== END 2019-01-18 12:45 | disposition home or self-care (01) ==
LOC: SDC 06:02
PROVIDERS: ATTEND Surgery
DX: K81.1 Chronic cholecystitis (principal); K82.8 Other specified diseases of gallbladder; Z80.49 Family history of malignant neoplasm of other genital organs; F32.9 Major depressive disorder, single episode, unspecified; F41.9 Anxiety disorder, unspecified; R00.2 Palpitations; G43.909 Migraine, unspecified, not intractable, without status migrainosus; Z11.2 Encounter for screening for other bacterial diseases; Z88.2 Allergy status to sulfonamides; Z80.3 Family history of malignant neoplasm of breast; Z80.1 Family history of malignant neoplasm of trachea, bronchus and lung
CPT/HCPCS: 84703; 87081; 94664

== ENCOUNTER → 2020-11-25 | Outpatient (CLI) | payer OTHER ==
[~2020-11-25] MED LIST changes: +GADOBUTROL 10 MMOL/10 ML (GADAVIST) VIAL IV ONE
--- NOTE | 2020-11-25 10:02 | Diagnostic Imaging Report ---
PROCEDURE: MR imaging of the brain with and without contrast. TECHNIQUE: Multiplanar, multisequence MR imaging of the brain was performed with and without contrast. INDICATION: Chronic headaches. Migraines. COMPARISON: CT head on 04/02/2017. FINDINGS: No acute ischemia, mass, or hemorrhage. A small amount of T2 hyperintense signal seen in the subcortical white matter in the bilateral frontal lobes. No abnormal enhancement is visualized in the brain. The ventricles, cortical sulci, and basilar cisterns are symmetric and unremarkable. The sellar and suprasellar regions have a normal appearance. The major intracranial flow voids are intact. The brainstem and posterior fossa are unremarkable. A small amount of mucosal thickening is seen in the right frontal sinus. Otherwise, the paranasal sinuses and mastoid air cells demonstrate normal signal characteristics. The globes and orbits are symmetric and unremarkable. The scalp and calvarium have a normal appearance. IMPRESSION: 1. No acute ischemia, mass, or hemorrhage. No abnormal enhancement. 2. Focal areas of T2 hyperintense signal in the subcortical white matter in the bilateral frontal lobes. Given the patient history this is favored to represent sequelae of migraine. 3. Small amount mucosal thickening in the right frontal sinus. Dictated by: Dictated on workstation # [id number]
== END ==
LOC: RAD 08:56
PROVIDERS: ATTEND Nurse Practitioner Family
DX: G43.109 Migraine with aura, not intractable, without status migrainosus (principal); J34.89 Other specified disorders of nose and nasal sinuses; H53.132 Sudden visual loss, left eye
CPT/HCPCS: 70553

== ENCOUNTER 2021-12-08 19:55 | Emergency (ER) | payer OTHER ==
[~2021-12-08] VITALS: Ht 167.7 cm; Wt 69.3 kg
[~2021-12-08 19:55] MED LIST changes: +CYCL10TA25 PO; -CYCL10TA9 PO; -GADOBUTROL 10 MMOL/10 ML (GADAVIST) VIAL IV ONE
[2021-12-08 20:32] VITALS: BP 120/70
--- NOTE | 2021-12-08 20:50 | Diagnostic Imaging Report ---
EXAMINATION: Right tibia and fibula radiographs, 2 views, 3 images. COMPARISON: None. HISTORY: 36-year-old female, right leg pain. FINDINGS: There is prominent soft tissue swelling adjacent of the distal fibula. There is a well-corticated ossification adjacent to the distal fibula suggesting a chronic long-standing etiology for this ossification. There is no identified acute fracture of the tibia or fibula. There is no identified radiopaque foreign body. IMPRESSION: 1. Prominent soft tissue swelling adjacent of the distal fibula which is nonspecific. 2. 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 3. No identified acute fracture of the right tibia or fibula. Dictated by: Dictated on workstation # [id number]
--- NOTE | 2021-12-08 20:51 | Diagnostic Imaging Report ---
EXAMINATION: Right ankle radiographs, 3 views. COMPARISON: None. HISTORY: 36-year-old female, right ankle pain. FINDINGS: There is prominent soft tissue swelling adjacent of the distal fibula. There is a large well-corticated ossification adjacent to the distal fibula, suggesting chronic long-standing etiology. This may relate to sequela of remote prior fracture or a large accessory ossicle. The alignment of the ankle mortise is unremarkable. There is no identified tibiotalar joint effusion. There is no identified acute fracture. IMPRESSION: 1. Prominent soft tissue swelling adjacent of the distal fibula. 2. Large well-corticated ossification adjacent to the distal fibula consistent with chronic long-standing process most likely reflecting sequela of prior injury. 3. No identified acute osseous abnormality. Dictated by: Dictated on workstation # [id number]
--- NOTE | 2021-12-08 20:52 | Diagnostic Imaging Report ---
EXAMINATION: Right foot radiographs, 3 views. COMPARISON: None. HISTORY: 36-year-old female, right foot pain. FINDINGS: There is a large well-corticated ossification adjacent to the distal fibula likely reflecting sequela of remote prior injury. There is normal variant congenital fusion of the fifth digit middle and distal phalanges. There is no identified acute fracture. Joint spaces are well preserved. IMPRESSION: 1. No identified acute bony abnormality of the right foot. Dictated by: Dictated on workstation # [id number]
--- NOTE | 2021-12-08 20:55 | ED Lower Extremity ---
General Chief Complaint: Lower Extremity Stated Complaint: R ANKLE PAIN Nursing Triage Note: Pt into ER via wheelchair with complaint of right ankle injury after tripping in hole. 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 Swelling and possible deformity to ankle. Source: patient History of Present Illness Date Seen by Provider: Dec 08, 2021 Time Seen by Provider: 20:25 Initial Comments PT ARRIVES VIA POV FROM HOME STATES AT 1945 TONIGHT AT HOME, SHE WAS PLAYING BASEBALL WITH FAMILY AND WAS RUNNING IN A FIELD AND STEPPED IN A HOLE AND TWISTED HER RIGHT ANKLE AND FELL C/O PAIN TO RIGHT ANKLE, UP TO RIGHT WILLIS C/O TINGLING TO TOES AND BOTTOM OF FOOT UNABLE TO BEAR WEIGHT ON RIGHT FOOT HAS FRACTURED THIS ANKLE IN 2000--NO SURGERY. NO OTHER INJURIES FROM THIS INCIDENT. PCP: DR. MALDONADO Allergies and Home Medications Allergies Coded Allergies: Sulfa (Sulfonamide Antibiotics) (Verified Allergy, Mild, 06/17/13) Patient Home Medication List Home Medication List Reviewed: Yes Hydrocodone Bit/Acetaminophen (Lortab 5 Mg Tablet) 1 Tab Tab, 1 TAB PO Q6H PRN for PAIN-MODERATE Prescribed by: MARCELLO RICHMOND on 01/18/19 0945 Naproxen (Naproxen) 500 Mg Tablet.dr, 500 MG PO BID Prescribed by: PATRICIA POTTS on 12/08/212102 Tramadol HCl (Ultram) 50 Mg Tablet, 50 MG PO Q4H Prescribed by: PATRICIA POTTS on 12/08/212103 Review of Systems Constitutional: no symptoms reported : No LMP: Nov 23, 2021 Control/STD Prophylaxis: None Musculoskeletal: see HPI Skin: no symptoms reported Psychiatric/Neurological: See HPI Past Echqfcd-[id number] Hx Patient Social History Tobacco Use?: No Use of E-Cig and/or Vaping dev: No Substance use?: No Alcohol Use?: No Pt feels they are or have been: No Immunizations Up To Date Tetanus Booster (TDap): Less than 5yrs PED Vaccines UTD: Yes Influenza Vaccine Up-to-Date: Yes; Up-to-Date Seasonal Allergies Seasonal Allergies: No Past Medical History Surgeries: Yes (CHOLECYSTECTOMY 01/2019) Adenoidectomy, Gallbladder, Tonsillectomy Respiratory: No Cardiac: Yes Palpitations Neurological: Yes Headaches /Migraines Reproductive Disorders: No Female Reproductive Disorders: Denies Sexually Transmitted Disease: No HIV/AIDS: No Genitourinary: Yes UTI-Chronic Gastrointestinal: Yes Gall Bladder Disease Musculoskeletal: No Endocrine: Yes Hypothyroidsim HEENT: No Cancer: No Psychosocial: Yes Anxiety, Depression Integumentary: No Blood Disorders: No Physical Exam Vital Signs Vital Signs - First Documented 12/08/21 20:32 Pulse 96 Resp 16 B/P (MAP) 120/70 (87) Pulse Ox 98 O2 Delivery Room Air Capillary Refill : Less Than 3 Seconds Height, Weight, BMI Height: 5'6.00" Weight: 176lbs. 0.0oz. [id number]; 24.00 BMI Method:Stated General Appearance: WD/WN, no apparent distress Hips: bilateral hip normal inspection Legs: left leg normal inspection; right leg other (TENDERNESS TO RIGHT ANTERIOR LOWER LEG) Knees: bilateral knee normal inspection Ankles: left ankle normal inspection; right ankle bone tenderness, right ankle limited range of motion, right ankle pain, right ankle soft tissue tenderness, right ankle swelling, right ankle other (LATERAL MALLEOLUS--MODERATE SWELLING. TENDERNESS TO MEDIAL AND POSTERIOR ANKLE) Feet: left foot normal inspection; right foot bone tenderness, right foot limited range of motion, right foot pain, right foot soft tissue tenderness, right foot swelling Neurologic/Tendon: normal sensation, normal motor functions, normal tendon functions Neurologic/Psychiatric: no motor/sensory deficits, alert, normal mood/affect, oriented x 3 Skin: normal color, warm/dry Procedures/Interventions Splinting and Joint Reduction : Jean wrap: Yes Immobilizers: Step Light Walker s/m/lg Ordered: Crutches Progress/Results/Core Measures Results/Orders My Orders Orders - PATRICIA POTTS DO Tibia/Fibula, Right, 2 Views (12/08/21 20:31) Foot, Right, 3 View (12/08/21 20:31) Ankle, Right, 3 Views (12/08/21 20:31) Jean Bandage (12/08/21 20:55) Steplite (12/08/21 20:55) Crutches (12/08/21 21:01) Rx-Naproxen (Rx-Naprosyn) (12/08/21 21:01) Rx-Tramadol Hcl (Rx-Ultram) (12/08/21 21:01) Vital Signs/I&O 12/08/21 20:32 Pulse 96 Resp 16 B/P (MAP) 120/70 (87) Pulse Ox 98 O2 Delivery Room Air Blood Pressure Mean: 87 Diagnostic Imaging Comments XRAYS--PER RADIOLOGIST REPORTS AT 2054 RIGHT TIB-FIB--IMPRESSION: 1. Prominent soft tissue swelling adjacent of the distal fibula which is nonspecific. 2. 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 3. No identified acute fracture of the right tibia or fibula. RIGHT ANKLE--IMPRESSION: 1. Prominent soft tissue swelling adjacent of the distal fibula. 2. Large well-corticated ossification adjacent to the distal fibula consistent with chronic long-standing process most likely reflecting sequela of prior injury. 3. No identified acute osseous abnormality. RIGHT FOOT-- IMPRESSION: 1. No identified acute bony abnormality of the right foot. Reviewed: Reviewed by Me Departure Impression Primary Impression: Right ankle sprain Additional Impression: Fall while running Disposition: HOME, SELF-CARE Condition: Stable Departure-Patient Inst. Decision time for Depature: 20:55 Referrals: NORMA LAI MD, WILLIAM J DO (PCP/Family) Primary Care Physician MALCOLM PACK MD Patient Instructions: Ankle Sprain ED, Going Up and Down Curbs or Stairs With a Walker or Crutches, How to Use Crutches, How to Use an Elastic Bandage, Walking Boot Add. Discharge Instructions: ICE TO AREA AT 20 MINUTE INTERVALS ELEVATE FOOT MUCH POSSIBLE WEAR JEAN WRAP AND BOOT AT ALL TIMES, AND USE CRUTCHES NEEDED FOLLOW UP WITH ORTHOPEDIC SURGEON OF CHOICE IN 1 WEEK FOR FURTHER CARE All discharge instructions reviewed with patient and/or family. Voiced understanding. Scripts Tramadol HCl (Ultram) 50 Mg Tablet 50 MG PO Q4H for Pain, #20 TAB Prov: PATRICIA POTTS DO 12/08/21 Naproxen (Naproxen) 500 Mg Tablet. 500 MG PO BID, #20 TAB Prov: PATRICIA POTTS DO 12/08/21 PATRICIA POTTS DO Dec 08, 2021 20:55
[2021-12-08] MEDS ORDERED: RX-NAPROXEN (NAPROSYN) 250 MG TAB PPK#4 PO STA (21:01)
[2021-12-08] MEDS ORDERED: TRAM-42 PO (21:03)
[2021-12-08] MEDS ORDERED: NAPR500T8 PO (21:03)
== END 2021-12-08 21:46 | disposition home or self-care (01) ==
LOC: EDUNIT# 19:55 → ER 19:58
DX: S93.401A Sprain of unspecified ligament of right ankle, initial encounter (principal); X50.1XXA Overexertion from prolonged static or awkward postures, initial encounter
CPT/HCPCS: 73590; 73610; 73630